=== PATIENT | female | born 1980 | race Caucasian/White ===

== ENCOUNTER 2020-05-19 17:17 | Emergency (ER) | payer BC ==
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
--- NOTE | 2020-05-20 11:04 | CR ---
Right hand: 4 views of the right hand were obtained. Comparison: No prior hand study. Joint spaces are preserved. No acute fracture, dislocation or other bony abnormality is appreciated. Impression: 1. Nothing acute is appreciated on right hand study. Diagnostic code #1 This report was dictated in MDT
--- NOTE | 2020-05-20 11:10 | CT ---
Head CT Technique: Multiple axial sections through the brain were obtained. Intravenous contrast was not utilized. Comparison: No prior intracranial imaging is available. Findings: Ventricles along with basal cisterns and sulci over the convexities are within normal limits for the patient's age. No abnormal parenchymal densities are seen. No evidence of intracranial hemorrhage. No midline shift or mass-effect is seen. Bone window settings were reviewed. No acute calvarial abnormality is seen. No acute findings within the visualized paranasal sinuses or mastoid sinuses is seen. Impression: 1. No acute intracranial abnormality is identified. Diagnostic code #1 This report was dictated in MDT I agree with preliminary report from [facility], finalized on 05/19/20, 7:26 PM Central Daylight Time
== END 2020-05-19 18:55 | disposition home or self-care (01) ==
LOC: JD.ED 17:17
DX: S06.0X0A Concussion without loss of consciousness, initial encounter (principal); S63.91XA Sprain of unspecified part of right wrist and hand, initial encounter; S50.811A Abrasion of right forearm, initial encounter; F17.210 Nicotine dependence, cigarettes, uncomplicated; Z90.49 Acquired absence of other specified parts of digestive tract; Z90.710 Acquired absence of both cervix and uterus; Z79.899 Other long term (current) drug therapy; V28.4XXA Motorcycle driver injured in noncollision transport accident in traffic accident, initial encounter
CPT/HCPCS: 70450; 70450-26; 73130-26-RT; 73130-RT; 99282; 99284-25